=== PATIENT | female | born 1955 | race Caucasian/White ===

== ENCOUNTER 2019-09-09 07:17 | Observation (INO) ==
[2019-09-09] MEDS ORDERED: MORPHINE SULFATE 2 MG/ML DISP.SYRIN ONE (07:21)
[2019-09-09] MEDS ORDERED: MORPHINE SULFATE 2 MG/ML DISP.SYRIN IM ONE (07:25)
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
[2019-09-09] MEDS ORDERED: LORazepam 2 MG/ML DISP.SYRIN IM ONE (07:38)
[2019-09-09] MEDS ORDERED: LORazepam 2 MG/ML DISP.SYRIN ONE (07:39)
[2019-09-09 07:47] LABS: Hematocrit 39.3 % (37.0-47.0); Hemoglobin 13.7 gm/dL (12.5-16.0); Mean Cell Volume 90.8 fl (78-100); Mean Corpuscular Hemoglobin 31.6 pg (27-31); Mean Corpuscular Hgb Conc 34.9 g/dl (32-36); Mean Platelet Volume 9.3 fl (8-12.5); Neutrophil # 5.8 K/mm3 (1.3-6.0); Neutrophil % 50.8 % (42-75.0); Platelet Count 286 K/mm3 (150-450); Red Blood Count 4.33 M/mm3 (4.2-5.4); Red Cell Distribution Width 11.9 % (11.5-14.0); White Blood Count 11.4 K/mm3 (4.0-10.5)
[2019-09-09 08:05] LABS: Albumin * 3.6 gm/dl (3.4-5.0); Anion Gap 17.8 mmol/L (6.8-13.8); BUN/Creatinine Ratio 9.8 (9.0-21.6); Bilirubin, Total 0.2 mg/dL (0.0-1.1); Ca. Corrected For Albumin 9.3 mg/dL (8.4-10.2); Calcium * 9.3 mg/dL (7.9-10.9); Carbon Dioxide 24.8 mmol/L (24-32.6); Potassium 3.6 mmol/L (3.4-4.6); Total Protein 7.4 gm/dL (6.2-8.2); Troponin I 0.028 ng/mL (0.00-0.10)
[2019-09-09] MEDS ORDERED: ZIPRASIDONE MESYLATE 20 MG VIAL IM ONE ×2 (08:21→08:30)
[2019-09-09 08:52] LABS: Cocaine Ur Negative (NEGATIVE); Urine Barbiturate Negative (NEGATIVE); Urine Benzodiazepines Negative (NEGATIVE); Urine PCP Negative (NEGATIVE); Urine THC Negative (NEGATIVE)
[2019-09-09 08:53] LABS: Urine Opiates Positive (NEGATIVE)
[2019-09-09 08:55] LABS: Salicylate 3.5 mg/dL (2.8-20.0)
[2019-09-09] MEDS ORDERED: NORMAL SALINE 1,000 ML IV ONE (08:59)
[2019-09-09 09:03] LABS: Urine Appearance Clear (CLEAR); Urine Bilirubin Negative (NEGATIVE); Urine Color Yellow
[2019-09-09 09:04] LABS: Urine Bacteria None Seen; Urine Blood 25 /ul (NEGATIVE); Urine Ketone Negative (NEGATIVE); Urine Nitrite Negative (NEGATIVE); Urine Protein Negative (NEGATIVE); Urine RBC 0-5 /hpf (0-5); Urine Specific Gravity 1.015 SP.GR. (1.005-1.010); Urine Urobilinogen Normal (NORMAL); Urine WBC 0-5 /hpf (0-5)
[2019-09-09 09:27] LABS: TSH * 2.921 uIU/mL (0.358-3.74)
[2019-09-09] MEDS: NORMAL SALINE 1,000 ML IV PRN ×3 (12:04→21:10)
--- NOTE | 2019-09-09 16:07 | HP ---
Chief Complaint - Chief Complaint Date of Service: 09/09/19 Time of Service: 16:07 Chief Complaint: altered mental status History of Present Illness: 64-year-old female with history of chronic pain currently prescribed a multitude of sedating medications was found down by her this morning unresponsive. EMS was called patient was brought to the ER here. While here patient received Narcan which caused her to become severely agitated to the point where she had to have four-point restraint. After being given morphine, Ativan, and Geodon patient finally relaxed enough to get head CT scan. Scan did not show any acute intracranial process. Drug screen showed positive for opiates. Due to patient's sedation patient was admitted to SCU for one-to-one care. Currently resting and responsive only to pain but is protecting her airway. All medications currently being held. Patient's vital signs are stable and she been afebrile. 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 Surgical History: Surgical History (Last Reviewed 09/09/19 @ 14:34 by Vicky Bright RN) Hx of hysterectomy Family History: Family History (Last Reviewed 09/09/19 @ 14:34 by Vicky Bright RN) Other No pertinent family history Social History: (Last Reviewed 09/09/19 @ 14:34 by Vicky Bright RN) Tobacco: Smoking Status: Former smoker Alcohol: alcohol intake: current alcohol intake frequency: holiday/special occasion Substance Use: substance use type: does not use Review Of Systems (GEN) - Review of Systems Additional Comments: Unable to obtain due to patient sedation and altered status Immunizations: IMMUNIZATION HX Immunizations Up to Date No History of Influenza Vaccine No Hx Pneumococcal Vaccination No Allergies/Adverse Reactions: Allergies Allergy/AdvReac Type Severity Reaction Status Date / Time furosemide [From Lasix] AdvReac Intermediate EDEMA Verified 09/09/19 14:35 acetaminophen [From Tylenol] AdvReac Mild CANT TAKE Verified 09/09/19 14:35 D/T OTHER MEDS adhesive tape AdvReac Mild RASH Verified 09/09/19 14:35 gabapentin AdvReac Mild HIGH BP Verified 09/09/19 14:35 Home Medications: HOME MEDICATIONS Estrogens,Conjugated [Premarin] 1.25 mg PO DAILY 06/24/12 [Last Taken 06/23/12] Methadone HCl [Methadone] 10 mg PO BID 03/31/14 [Last Taken Unknown] Amitriptyline HCl 100 mg PO HS 07/05/14 [Last Taken Unknown] Bumetanide [Bumex] 0.5 mg PO BID 07/05/14 [Last Taken Unknown] Activated Charcoal [CharcoCaps] 260 mg PO QID PRN 03/24/15 [Last Taken Unknown] Calcium Polycarbophil [Fibercon] 2 tab PO BID 03/24/15 [Last Taken Unknown] Cyanocobalamin [Vitamin B-12] 1,000 mcg IJ 2XW 03/24/15 [Last Taken 09/07/19] Etodolac [Etodolac (Lodine)] 250 mg PO QID 03/24/15 [Last Taken Unknown] Lactase [Lactaid] 9,000 unit PO PRN PRN 03/24/15 [Last Taken Unknown] Lidocaine [Lidoderm 5%] 3 patch TP DAILY 03/24/15 [Last Taken Unknown] Methadone HCl [Methadone] 20 mg PO HS 03/24/15 [Last Taken Unknown] Multivitamins [Multivitamin Desmond] 1 cap PO DAILY 03/24/15 [Last Taken Unknown] Ondansetron [Zofran Odt] 8 mg PO Q6H 03/24/15 [Last Taken Unknown] Pantoprazole Sodium [Protonix] 40 mg PO BID 03/24/15 [Last Taken Unknown] Polyethylene Glycol 3350 [Miralax] 17 gm PO DAILY PRN 03/24/15 [Last Taken 06/04/19] Pramipexole Di-HCl [Mirapex] 0.5 mg PO HS 03/24/15 [Last Taken Unknown] Sennosides/Docusate Sodium [Senokot-S] 2 tab PO BID 03/24/15 [Last Taken Unknown] Sulfacetamide Sodium [Sulf-10 Ophthalmic Solution] 1 drop EACHEYE Q4H #15 ml 04/24/16 [Last Taken Unknown] Lisinopril 20 mg PO DAILY 06/06/19 [Last Taken Unknown] tiZANidine HCL [Zanaflex] 4 mg PO Q6H PRN 06/06/19 [Last Taken Unknown] tiZANidine HCL [Zanaflex] 6 mg PO HS PRN 06/06/19 [Last Taken Unknown] Exam - Exam Vital Signs: Vital Signs - Last Taken Temp 37.0 C 09/09/19 10:07 Pulse 81 09/09/19 15:00 Resp 20 09/09/19 15:00 BP 145/96 H 09/09/19 15:00 Pulse Ox 95 09/09/19 15:00 Constitutional: Present: Elderly. Absent: Alert, Oriented x3 Respiratory: Present: lungs clear, normal breath sounds Cardiovascular/Chest: Present: regular rate, rhythm, no murmur - Pacer check, edema Abdomen: Present: Normal bowel sounds, soft, nontender Diagnostic Studies: Abnormal Lab Results 09/09/19 09/09/19 09/09/19 Range/Units 07:42 07:42 07:42 WBC 11.4 H (4.0-10.5) K/mm3 MCH 31.6 H (27-31) pg Eosinophils % 6.8 H (0.0-3.0) % Lymphocytes # 3.93 H (1.5-3.5) k/mm3 Eosinophils # 0.8 H (0.0-0.7) k/mm3 Anion Gap 17.8 H (6.8-13.8) mmol/L Creatinine 1.73 H D (0.4-1.4) mg/dL Est GFR (Non-Af Amer) 31 L D (60-130) mL/min Random Glucose 134 H (70-110) mg/dL Lactic Acid, Venous 2.9 H* (0.4-2.0) mmol/L ALT 4 L (19-67) U/L Urine Blood (NEGATIVE) /ul Urine Opiates Screen (NEGATIVE) Acetaminophen (10.0-30.0) mcg/mL 09/09/19 09/09/19 09/09/19 Range/Units 07:42 08:23 08:23 WBC (4.0-10.5) K/mm3 MCH (27-31) pg Eosinophils % (0.0-3.0) % Lymphocytes # (1.5-3.5) k/mm3 Eosinophils # (0.0-0.7) k/mm3 Anion Gap (6.8-13.8) mmol/L Creatinine (0.4-1.4) mg/dL Est GFR (Non-Af Amer) (60-130) mL/min Random Glucose (70-110) mg/dL Lactic Acid, Venous (0.4-2.0) mmol/L ALT (19-67) U/L Urine Blood 25 H (NEGATIVE) /ul Urine Opiates Screen Positive H (NEGATIVE) Acetaminophen Less than 0.2 L (10.0-30.0) mcg/mL Laboratory Results WBC 11.4 K/mm3 (4.0-10.5) H 09/09/19 07:42 RBC 4.33 M/mm3 (4.2-5.4) 09/09/19 07:42 Hgb 13.7 gm/dL (12.5-16.0) 09/09/19 07:42 Hct 39.3 % (37.0-47.0) 09/09/19 07:42 MCV 90.8 fl (78-100) 09/09/19 07:42 MCH 31.6 pg (27-31) H 09/09/19 07:42 MCHC 34.9 g/dl (32-36) 09/09/19 07:42 RDW 11.9 % (11.5-14.0) 09/09/19 07:42 Plt Count 286 K/mm3 (150-450) 09/09/19 07:42 MPV 9.3 fl (8-12.5) 09/09/19 07:42 Immature Gran % (Auto) 0.30 % (0.001-0.429) 09/09/19 07:42 Immature Gran # (Auto) 0.03 K/mm3 (0.000-0.0310) 09/09/19 07:42 Neutrophils % 50.8 % (42-75.0) 09/09/19 07:42 Lymphocytes % 34.5 % (20-51) 09/09/19 07:42 Monocytes % 7.2 % (0.0-9) 09/09/19 07:42 Eosinophils % 6.8 % (0.0-3.0) H 09/09/19 07:42 Basophils % 0.4 % (0.0-1.0) 09/09/19 07:42 Nucleated RBC % 0.0 k/mm3 (0-1) 09/09/19 07:42 Neutrophils # 5.8 K/mm3 (1.3-6.0) 09/09/19 07:42 Lymphocytes # 3.93 k/mm3 (1.5-3.5) H 09/09/19 07:42 Monocytes # 0.8 k/mm3 (0.0-1.0) 09/09/19 07:42 Eosinophils # 0.8 k/mm3 (0.0-0.7) H 09/09/19 07:42 Absolute Basophils 0.1 k/mm3 (0.0-0.1) 09/09/19 07:42 Sodium 138 mmol/L (132-142) 09/09/19 07:42 Plasma Sodium 139 mmol/L (130-142) 09/09/19 07:42 Potassium 3.6 mmol/L (3.4-4.6) 09/09/19 07:42 Chloride 99 mmol/L (97-106) 09/09/19 07:42 Carbon Dioxide 24.8 mmol/L (24-32.6) 09/09/19 07:42 Anion Gap 17.8 mmol/L (6.8-13.8) H 09/09/19 07:42 BUN 17 mg/dL (3-23) 09/09/19 07:42 Creatinine 1.73 mg/dL (0.4-1.4) H D 09/09/19 07:42 Est GFR (Non-Af Amer) 31 mL/min (60-130) L D 09/09/19 07:42 BUN/Creatinine Ratio 9.8 (9.0-21.6) 09/09/19 07:42 Random Glucose 134 mg/dL (70-110) H 09/09/19 07:42 Lactic Acid, Venous 2.9 mmol/L (0.4-2.0) H* 09/09/19 07:42 Calcium 9.3 mg/dL (7.9-10.9) 09/09/19 07:42 Calcium Adj for Albumin 9.3 mg/dL (8.4-10.2) 09/09/19 07:42 Total Bilirubin 0.2 mg/dL (0.0-1.1) 09/09/19 07:42 AST 22 U/L (0-48) 09/09/19 07:42 ALT 4 U/L (19-67) L 09/09/19 07:42 Alkaline Phosphatase 85 U/L (50-170) 09/09/19 07:42 Creatine Kinase 119 U/L (0-259) 09/09/19 07:42 Creatine Kinase 133 U/L (0-259) 09/09/19 07:42 Troponin I 0.028 ng/mL (0.00-0.10) 09/09/19 07:42 Total Protein 7.4 gm/dL (6.2-8.2) 09/09/19 07:42 Albumin 3.6 gm/dl (3.4-5.0) 09/09/19 07:42 TSH 2.921 uIU/mL (0.358-3.74) 09/09/19 07:42 Urine Color Yellow 09/09/19 08:23 Urine Appearance Clear (CLEAR) 09/09/19 08:23 Urine pH 6.0 pH (5.0-7.0) 09/09/19 08:23 Ur Specific [place] 1.015 SP.GR. (1.005-1.010) 09/09/19 08:23 Urine Protein Negative mg/dL (NEGATIVE) 09/09/19 08:23 Urine Glucose (UA) Negative mg/dL (NEGATIVE) 09/09/19 08:23 Urine Ketones Negative mg/dL (NEGATIVE) 09/09/19 08:23 Urine Blood 25 /ul (NEGATIVE) H 09/09/19 08:23 Urine Nitrate Negative (NEGATIVE) 09/09/19 08:23 Urine Bilirubin Negative mg/dl (NEGATIVE) 09/09/19 08:23 Urine Urobilinogen Normal EU/dl (NORMAL) 09/09/19 08:23 Ur Leukocyte Esterase Negative /ul (NEGATIVE) 09/09/19 08:23 Urine RBC 0-5 /hpf (0-5) 09/09/19 08:23 Urine WBC 0-5 /hpf (0-5) 09/09/19 08:23 Ur Epithelial Cells 0-5 /hpf (0-5) 09/09/19 08:23 Urine Bacteria None seen (NONE) 09/09/19 08:23 Urine Culture Comments No culture indicated 09/09/19 08:23 Salicylates 3.5 mg/dL (2.8-20.0) 09/09/19 07:42 Urine Opiates Screen Positive (NEGATIVE) H 09/09/19 08:23 Acetaminophen Less than 0.2 mcg/mL (10.0-30.0) L 09/09/19 07:42 Barbiturate Screen Negative (NEGATIVE) 09/09/19 08:23 Ur Phencyclidine Scrn Negative (NEGATIVE) 09/09/19 08:23 Urine Amphetamine Negative (NEGATIVE) 09/09/19 08:23 U Benzodiazepines Scrn Negative (NEGATIVE) 09/09/19 08:23 Urine Cocaine Screen Negative (NEGATIVE) 09/09/19 08:23 Urine Marijuana (THC) Negative (NEGATIVE) 09/09/19 08:23 Ethyl Alcohol 3.0 mg/dL (0.0-10.0) 09/09/19 07:42 Ethyl Alcohol 3.0 mg/dL (0.0-10.0) 09/09/19 07:42 Assessment/Plan - Narrative Narrative: Patient currently being monitored in ICU for altered mental status and sedation. All medications currently being held. Patient is n.p.o. at this time. Patient currently protecting her airway and her vital signs are stable. When she is more alert and we can get a better picture of what happened, will address treatment plan then at that time. Nurse will call questions or concerns. - Assessment/Plan (1) Chronic prescription opiate use Problem: Acute (2) AMS (altered mental status) Problem: Acute Qualifiers: Altered mental status type: delirium Qualified Code(s): R41.0 - Disorientation, unspecified
[2019-09-09] MEDS ORDERED: LISINOPRIL 10 MG TABLET ONE (23:35)
[2019-09-09] MEDS: LISINOPRIL 20 MG TABLET PO SCH (23:36)
[2019-09-09] MEDS: oxyCODONE HCL 5 MG TABLET PO PRN (23:46)
[2019-09-10] MEDS: NORMAL SALINE 1,000 ML IV PRN (03:18)
[2019-09-10 06:51] LABS: Hematocrit 33.2 % (37.0-47.0); Hemoglobin 11.5 gm/dL (12.5-16.0); Mean Cell Volume 89.5 fl (78-100); Mean Corpuscular Hgb Conc 34.6 g/dl (32-36); Mean Platelet Volume 9.4 fl (8-12.5); Neutrophil # 2.9 K/mm3 (1.3-6.0); Neutrophil % 51.6 % (42-75.0); Platelet Count 208 K/mm3 (150-450); Red Blood Count 3.71 M/mm3 (4.2-5.4); Red Cell Distribution Width 11.8 % (11.5-14.0); White Blood Count 5.6 K/mm3 (4.0-10.5)
[2019-09-10] MEDS: LISINOPRIL 20 MG TABLET PO SCH (08:13)
[2019-09-10] MEDS: oxyCODONE HCL 5 MG TABLET PO PRN (08:13)
[2019-09-10 10:20] VITALS: BP 154/80
--- NOTE | 2019-09-10 10:27 | DS ---
(1) Chronic prescription opiate use Problem: Chronic (2) AMS (altered mental status) Problem: Resolved Qualifiers: Altered mental status type: delirium Qualified Code(s): R41.0 - Disorientation, unspecified Date of Discharge:: 09/10/19 Hospital Course: 64-year-old female brought into the hospital after being found down by her . Patient has significant history of back pain with multiple issues per patient.'s states that she has multiple annular disc tears which is why she is on fairly strong narcotics. Currently taking methadone and oxycodone. Also takes tizanidine and amitriptyline. She came with a box medications that were not currently on her active medication list so unsure as to what else she has been taking. Patient does not appear to be taken her medication appropriately but she had an adverse reaction where she was unresponsive. EMS was called and administered Narcan in the field. When she got to the ER she also had another dose of Narcan in which she became fairly agitated and aggressive requiring sedation with morphine Ativan and Geodon. Toxin positive for opiates only. Scan of her head was negative for acute intracranial process. Patient transferred to the SCU for monitoring. Patient became oriented and alert last night and was unable to explain really what happened. States he is taken medication appropriately. Had a long talk about how her interactions with the medications that she is on is fairly significant and can be very dangerous and that she needed to discuss this with her physician who is given her this medicine and try to come up with a better treatment plan for her back pain. Invited her to come see me if she needed to. Patient today is stable, her vital signs are stable, she is back to her self. She is ready go home. Lab work was unremarkable. Tolerating p.o. well. No changes to her medications though again caution and recommendations were given as far as how and what to take. Patient was in agreement with this and ready be discharged home. Procedures Performed: none Results and Findings: Lab Pending Results 09/09/19 07:42: WBC 11.4 H, RBC 4.33, Hgb 13.7, Hct 39.3, MCV 90.8, MCH 31.6 H, MCHC 34.9, RDW 11.9, Plt Count 286, MPV 9.3, Immature Gran % (Auto) 0.30, Immature Gran # (Auto) 0.03, Neutrophils % 50.8, Lymphocytes % 34.5, Monocytes % 7.2, Eosinophils % 6.8 H, Basophils % 0.4, Nucleated RBC % 0.0, Neutrophils # 5.8, Lymphocytes # 3.93 H, Monocytes # 0.8, Eosinophils # 0.8 H, Absolute Basophils 0.1 09/09/19 07:42: Sodium 138, Plasma Sodium 139, Potassium 3.6, Chloride 99, Carbon Dioxide 24.8, Anion Gap 17.8 H, BUN 17, Creatinine 1.73 H D, Est GFR (Non-Af Amer) 31 L D, BUN/Creatinine Ratio 9.8, Random Glucose 134 H, Calcium 9.3, Calcium Adj for Albumin 9.3, Total Bilirubin 0.2, AST 22, ALT 4 L, Alkaline Phosphatase 85, Creatine Kinase 119, Troponin I 0.028, Total Protein 7.4, Albumin 3.6, Ethyl Alcohol 3.0 09/09/19 07:42: Lactic Acid, Venous 2.9 H* 09/09/19 07:42: Salicylates 3.5, Acetaminophen Less than 0.2 L, Ethyl Alcohol 3.0 09/09/19 07:42: Creatine Kinase 133, TSH 2.921 09/09/19 08:23: Urine Opiates Screen Positive H, Barbiturate Screen Negative, Ur Phencyclidine Scrn Negative, Urine Amphetamine Negative, U Benzodiazepines Scrn Negative, Urine Cocaine Screen Negative, Urine Marijuana (THC) Negative 09/09/19 08:23: Urine Color Yellow, Urine Appearance Clear, Urine pH 6.0, Ur Specific Humble 1.015, Urine Protein Negative, Urine Glucose (UA) Negative, Urine Ketones Negative, Urine Blood 25 H, Urine Nitrate Negative, Urine Bilirubin Negative, Urine Urobilinogen Normal, Ur Leukocyte Esterase Negative, Urine RBC 0-5, Urine WBC 0-5, Ur Epithelial Cells 0-5, Urine Bacteria None seen, Urine Culture Comments No culture indicated 09/09/19 16:54: Lactic Acid, Venous 0.4 09/10/19 05:40: WBC 5.6 D, RBC 3.71 L, Hgb 11.5 L, Hct 33.2 L, MCV 89.5, MCH 31.0, MCHC 34.6, RDW 11.8, Plt Count 208, MPV 9.4, Immature Gran % (Auto) 0.20, Immature Gran # (Auto) 0.01, Neutrophils % 51.6, Lymphocytes % 32.3, Monocytes % 7.5, Eosinophils % 7.9 H, Basophils % 0.5, Nucleated RBC % 0.0, Neutrophils # 2.9, Lymphocytes # 1.80, Monocytes # 0.4, Eosinophils # 0.4, Absolute Basophils 0.0 Discharge Location: Home Disposition: Home self-care Condition: Fair Discharge Activity: Activity as tolerated Discharge Diet: General/regular food Referrals: Richar Gregg APRN [Primary Care Provider] - Additional Patient Instructions (free text): Follow up with Dr. Nguyen 09/18 at 10:30a.m. Complete Home Medications List: Complete Home Medication List: Estrogens,Conjugated [Premarin] 1.25 mg PO DAILY 06/24/12 Methadone HCl [Methadone] 10 mg PO 0700,1200 03/31/14 Amitriptyline HCl 100 mg PO HS 07/05/14 Bumetanide [Bumex] 0.5 mg PO BID 07/05/14 Cyanocobalamin [Vitamin B-12] 1,000 mcg IJ 2XW 03/24/15 Methadone HCl [Methadone] 20 mg PO HS 03/24/15 Multivitamins [Multivitamin Desmond] 1 cap PO DAILY 03/24/15 Ondansetron [Zofran Odt] 8 mg PO Q6H 03/24/15 Pantoprazole Sodium [Protonix] 40 mg PO BID 03/24/15 Polyethylene Glycol 3350 [Miralax] 17 gm PO DAILY 03/24/15 Pramipexole Di-HCl [Mirapex] 0.5 mg PO HS 03/24/15 Sennosides/Docusate Sodium [Senokot-S] 2 tab PO BID 03/24/15 tiZANidine HCL [Zanaflex] 4 mg PO BID PRN 06/06/19 tiZANidine HCL [Zanaflex] 6 mg PO HS PRN 06/06/19 Albuterol Sulfate [Proair Hfa] 2 puff INHALATION QID PRN 09/10/19 Diclofenac Sodium [Diclofono] 2.5 gm TOPICAL QID 09/10/19 Levothyroxine Sodium [Synthroid] 25 mcg PO DAILY 09/10/19 Lisinopril [Zestril] 40 mg PO DAILY 09/10/19 Oxycodone HCl/Acetaminophen [Endocet 10-325 mg Tablet] 1 ea PO Q4H PRN 09/10/19 Solifenacin Succinate 10 mg PO DAILY 09/10/19
[2019-09-10] MEDS ORDERED: AMITRIPTYLINE HCL 50 MG TABLET PO SCH (21:00)
== END 2019-09-10 10:45 | disposition home or self-care (01) ==
LOC: ER 07:17 → SCU 07:17 → MS 22:21
PROVIDERS: ADMIT Family Medicine; ATTEND Family Medicine
DX: I10 Essential (primary) hypertension; R41.82 Altered mental status, unspecified; F11.20 Opioid dependence, uncomplicated; T40.2X5A Adverse effect of other opioids, initial encounter; M54.9 Dorsalgia, unspecified
CPT/HCPCS: 36415; 70450; 71010; 71045; 74019; 74020; 80053; 80307; 81001; 82550; 83605; 84443; 84484; 85025; 93005; 96372; 99285; G0378